=== PATIENT | female | born 1940 | race Caucasian/White ===

== ENCOUNTER 2023-09-02 12:52 | Emergency (ER) | payer MEDICARE, OTHER, SELFPAY ==
[2023-09-02 13:01] VITALS: BP 124/70; PULSE 70; RESP 16; TEMP 36.4; O2SAT 100; BMI 20.8
--- NOTE | 2023-09-02 13:13 | CRLHL7_ITS ---
For Patients: As a result of the Cures Act, medical imaging exams and procedure reports are released immediately into your electronic medical record. You may view this report before your referring provider. If you have questions, please contact your health care provider. INDICATION: Trauma, fall. TECHNIQUE: Chest and right ribs 3 views. COMPARISON: None. FINDINGS: Cardiovascular and mediastinum: Heart size and vasculature are normal in caliber and appearance. Mediastinum is within normal limits. Lungs and pleural spaces: Lungs are clear. No sign of infiltrate or mass. No sign of pleural effusion. No pneumothorax. Bones and soft tissues: Detailed oblique images of the right ribs demonstrate no fractures or bone lesions. IMPRESSION: Unremarkable chest and right ribs. Dictated by Hank Gamez MD @ 09/02/2023 2:28:45 PM (Electronically Signed)
--- NOTE | 2023-09-02 13:14 | ED.GENADULT ---
HPI - General Adult General Time Seen by Provider: 13:14 Date Seen: 09/02/23 Chief complaint: Fall/Minor Trauma Stated complaint: Fell this morning, right side rib pain Time Seen by Provider: 09/02/23 12:53 Source: patient Mode of arrival: ambulatory Limitations: physical limitation History of Present Illness HPI narrative: Brandi is a very pleasant 83 year white female who fell in the bathtub today and injured her right chest wall lower. She does not affect her abdomen. It is in her right lower ribcage area. She is on a small dose of aspirin and simvastatin daily, otherwise is quite healthy. She has definite tenderness to palpation of her right lower ribcage area. She reports that when she takes deep breath hurts a little more. No back complaints no neck complaints, no lower extremity symptoms. Related Data Home Medications Medication Instructions Recorded Confirmed aspirin 81 mg tablet,delayed 81 mg PO DAILY 09/02/23 09/02/23 release (Adult Aspirin Regimen) simvastatin 10 mg tablet 10 mg PO QPM 09/02/23 09/02/23 Allergies Allergy/AdvReac Type Severity Reaction Status Date / Time No Known Drug Allergies Allergy Verified 09/02/23 13:07 Review of Systems Status of ROS: Reports: 6 or more systems reviewed and unremarkable except as noted in History and below Exam Narrative: Exam Narrative: Objective: Vital signs are normal Patient is in mild distress and discomfort but alert orient x3 HEENT and neck unremarkable back exam unremarkable Her right rib cage in the mid axillary line shows some mild tenderness to palpation in the area that she describes. Just inferolateral to the breast area on the right abdominal exam is benign no tenderness no right upper quadrant pain Patient is able to stand and move without difficulty , lower extremities unremarkable meaning normal motion and no tenderness Const: Vital Signs, click to edit/add: Vital Signs - 24 hr 09/02/23 13:01 Temperature 97.5 F L Pulse Rate [Pulse Oximeter] 70 Respiratory Rate 16 Blood Pressure [Ri ght Upper Arm] 124/70 Pulse Oximetry 100 Oxygen Delivery Me thod Room Air Course Vital Signs Vital signs: Initial Vital Signs Temperature 97.5 F L 09/02/23 13:01 Temperature Source Temporal Artery Scan 09/02/23 13:01 Pulse Rate 70 09/02/23 13:01 Respiratory Rate 16 09/02/23 13:01 Blood Pressure 124/70 09/02/23 13:01 Blood Pressure Mean 88 09/02/23 13:01 Blood Pressure Position Sitting 09/02/23 13:01 Pulse Oximetry 100 09/02/23 13:01 Oxygen Delivery Method Room Air 09/02/23 13:01 Vital Signs Temperature 97.5 F L 09/02/23 13:01 Pulse Rate 70 09/02/23 13:01 Respiratory Rate 16 09/02/23 13:01 Blood Pressure 124/70 09/02/23 13:01 Pulse Oximetry 100 09/02/23 13:01 Oxygen Delivery Method Room Air 09/02/23 13:01 Temperature 97.5 F L 09/02/23 13:01 Pulse Rate 70 09/02/23 13:01 Respiratory Rate 16 09/02/23 13:01 Blood Pressure 124/70 09/02/23 13:01 Pulse Oximetry 100 09/02/23 13:01 Oxygen Delivery Method Room Air 09/02/23 13:01 Medical Decision Making MDM Narrative Medical decision making narrative: 83-year-old female fell on her right lower rib cage in a bathtub hit the edge of the bathtub with her ribs. Will check an x-ray and rib detail. Disposition pending findings, Tylenol and ibuprofen given now. Will need ice and light activity. Will await Radiology reading of her films. Addendum 2:26 p.m. patient does appear to have a slight nondisplaced rib fracture on her oblique view. Will await Radiology overreading, she feels much better with the Tylenol ibuprofen, she can ice use these on a regular basis as needed, light activity and recheck with primary care in 5-7 days, return sooner problems concerns worsening. Discussed potential intra-abdominal injuries but she has no abdominal pain and feels that that is not necessary at this point I would agree. With her point tenderness in her ribcage area, she certainly has a clinical rib fracture so I think treatment as above is appropriate. Discharge Plan Discharge Clinical Impression: Chest wall contusion, Fracture of rib Patient Disposition: Home w/ Parent or Adult Condition: Stable Instructions: Rib Contusion (ED) Additional Instructions: Light activity, Tylenol and Advil as needed, ice the affected area 5 minutes 5 times a day if he can, recheck with regular doctor next 3-4 days, return sooner problems or concerns. Activity Level: Light activity Discharge Diet: Regular Prescriptions: No Action simvastatin 10 mg tablet 10 mg PO QPM aspirin [Adult Aspirin Regimen] 81 mg tablet,delayed release (DR/EC) 81 mg PO DAILY Follow Up/Referrals: Leigh Adhikari MD [Primary Care Provider] - Stand Alone Forms: [employer] Info Instructions
[2023-09-02] MEDS: ACETAMINOPHEN 500 MG TABLET 1000 MG PO (13:29)
[2023-09-02] MEDS: IBUPROFEN 200 MG TABLET 600 MG PO (13:29)
== END 2023-09-02 14:33 | disposition home or self-care (01) ==
LOC: ED 13:40
PROVIDERS: Emergency Provider Family Medicine; PCP Family Medicine
DX: S20.219A Contusion of unspecified front wall of thorax, initial encounter (principal); S22.31XA Fracture of one rib, right side, initial encounter for closed fracture; W18.2XXA Fall in (into) shower or empty bathtub, initial encounter
CPT/HCPCS: 71101; 99283; 99284; A9270

== ENCOUNTER 2024-03-12 11:23 | Outpatient (CLI) | payer MEDICARE, OTHER, SELFPAY | END 2024-03-12 11:24 | disposition home or self-care (01) | LOC: AMB 03-14 16:45 | PROVIDERS: PCP Family Medicine; Visit Provider Family Medicine | DX: R55 Syncope and collapse (principal) | CPT/HCPCS: A0425; A0427 ==

== ENCOUNTER 2024-03-12 11:39 | Emergency (ER) | payer MEDICARE, OTHER, SELFPAY ==
[2024-03-12 11:49] VITALS: BP 109/64; PULSE 83; RESP 18; TEMP 36.6; O2SAT 96
--- NOTE | 2024-03-12 11:54 | ED.GENADULT ---
HPI - General Adult General Chief complaint: Syncope/Fainted Stated complaint: syncope Time Seen by Provider: 03/12/24 11:53 History of Present Illness HPI narrative: was walking with , he tripped and fell. there was blood on sidewalk and pt became light headed. is feeling back to baseline upon arrival to ED 83-year-old woman presenting to the emergency department with concern of episode of lightheadedness. She does not report any chest pain shortness of breath or palpitations. She was advised upon presentation to the emergency department when revealed lightheadedness that be further evaluated. She says she feels fine. Had been accompanying her when he tripped and fell and suspects that this was a response to his injury and the blood that was about. Otherwise has been in usual state of health. Just wants to be at her 's bedside across the emergency department. Related Data Home Medications ?Medication ?Instructions ?Recorded ?Confirmed aspirin 81 mg tablet,delayed 81 mg PO DAILY 09/02/23 03/12/24 release (Adult Aspirin Regimen) simvastatin 10 mg tablet 10 mg PO QPM 09/02/23 03/12/24 Allergies Allergy/AdvReac Type Severity Reaction Status Date / Time No Known Drug Allergies Allergy Verified 09/02/23 13:07 Review of Systems Status of ROS: Reports: 6 or more systems reviewed and unremarkable except as noted in History and below [facility] Medical History Health care directive on file ?Z78.9 - Other specified health status (ICD-10) Social History Smoking Status: Never smoker Do you use any of these nicotine containing products: None How often do you have a drink containing alcohol: never AUDIT-C Alcohol total score: 0 Non-prescribed substance use: denies use Exam Narrative: Exam Narrative: Very pleasant. Little hard of hearing. NAD. Skin is warm and dry. Heart in regular rate and rhythm. No murmur; a little distant. Lungs are clear. Cranial nerves 2-12 intact. Moving all extremities without difficulty. She has good strength. Eyes are bright. Equal. Briskly reactive. Const: Vital Signs, click to edit/add: Vital Signs - 24 hr 03/12/24 11:49 Temperature 97.9 F Pulse Rate [Right Pulse Oximeter] 83 Respiratory Rate 18 Blood Pressure [Ri ght Upper Arm] 109/64 Pulse Oximetry 96 Oxygen Delivery Me thod Room Air Documenting provider has reviewed patient's vital signs: yes Course Vital Signs Vital signs: Initial Vital Signs Temperature 97.9 F 03/12/24 11:49 Temperature Source Temporal Artery Scan 03/12/24 11:49 Pulse Rate 83 03/12/24 11:49 Respiratory Rate 18 03/12/24 11:49 Blood Pressure 109/64 03/12/24 11:49 Blood Pressure Mean 79 03/12/24 11:49 Blood Pressure Position Sitting 03/12/24 11:49 Pulse Oximetry 96 03/12/24 11:49 Oxygen Delivery Method Room Air 03/12/24 11:49 Vital Signs Temperature 97.9 F 03/12/24 11:49 Pulse Rate 83 03/12/24 11:49 Respiratory Rate 18 03/12/24 11:49 Blood Pressure 109/64 03/12/24 11:49 Pulse Oximetry 96 03/12/24 11:49 Oxygen Delivery Method Room Air 03/12/24 11:49 Temperature 97.9 F 03/12/24 11:49 Pulse Rate 73 03/12/24 12:11 Respiratory Rate 18 03/12/24 11:49 Blood Pressure 96/57 L 03/12/24 12:11 Pulse Oximetry 96 03/12/24 11:49 Oxygen Delivery Method Room Air 03/12/24 11:49 Medical Decision Making MDM Narrative Medical decision making narrative: Appears generally well. This does appear to have been a vasovagal type event. Certainly the differential is broad including TIA, arrhythmia, IA, PE. No symptoms really seem to be remaining. Could be orthostatic. Vitals look good at rest. Ms. Gurrola otherwise appears well. She would prefer not to have any further evaluation beyond brief monitoring and orthostatics. Orthostatics did show 20 point increase in pulse. Blood pressure maintained. See patient discharge plan for further discussion Medical Records Medical records reviewed: Yes I reviewed the patient's medical records Discharge Plan Discharge Clinical Impression: Vasovagal episode Patient Disposition: Home w/ Parent or Adult Condition: Stable Instructions: Near Syncope (ED) Additional Instructions: Stay well-hydrated. Take care in transitions. I am sorry this happened to you all this morning. Prescriptions: No Action simvastatin 10 mg tablet 10 mg PO QPM aspirin [Adult Aspirin Regimen] 81 mg tablet,delayed release (DR/EC) 81 mg PO DAILY Follow Up/Referrals: Leigh Adhikari MD [Primary Care Provider] - Stand Alone Forms: [employer] Info Instructions
[2024-03-12 12:11] VITALS: BP 100/70; BP 96/57; BP 98/75; PULSE 73; PULSE 80; PULSE 93
== END 2024-03-12 12:43 | disposition home or self-care (01) ==
LOC: ED 12:31
PROVIDERS: Emergency Provider Family Medicine; PCP Family Medicine
DX: R55 Syncope and collapse (principal)
CPT/HCPCS: 93005; 99283